=== PATIENT | female | born 1990 | race Caucasian/White ===

== ENCOUNTER 2018-01-16 00:34 | Emergency (ER) | payer SELFPAY ==
[~2018-01-16] VITALS: Ht 162.6 cm; Wt 50.0 kg
[2018-01-16 02:00] VITALS: BP 100/53
== END 2018-01-16 02:29 | disposition home or self-care (01) ==
LOC: ER 00:34
DX: F10.229 Alcohol dependence with intoxication, unspecified (principal); Y90.9 Presence of alcohol in blood, level not specified
CPT/HCPCS: 99283